=== PATIENT | male | born 1960 | race Caucasian/White ===

== ENCOUNTER 2016-11-12 20:28 | Observation (INO) ==
[2016-11-12] MEDS ORDERED: Naloxone 0.4 MG/ML INJ IVP PRN (22:18)
[2016-11-12] MEDS ORDERED: Ondansetron 4 MG/2 ML VIAL IVP PRN (22:18)
--- NOTE | 2016-11-12 22:18 | Internal Med History&Physical ---
Date of Encounter: 11/12/16 Time of Encounter: 22:18 Assessment and Plan (1) Gastroenteritis Current visit: Yes Status: Acute patient with no preexisting GI problems comes in with GI irritation and gastritis symptoms following ingestion of old, ? norco, history in this case points to a reaction to the medications he ingested, we will admit for observation and supportive therapy with IVF, antacids, antiemetics and bowel rest, we will advance diet gradually as tolerated (2) Hypokalemia Current visit: Yes Status: Acute from GI loss, we will replace and follow BMP (3) Anxiety Current visit: Yes Status: Chronic will continue home medications (4) Mood disorder Current visit: Yes Status: Chronic will continue home medications Internal Medicine - H&P: HPI Chief complaint: nausea and vomiting Admitted From: Hospital to Hospital Transfer Plans for Post Hospital Care: Home History of present illness: Mr. Kohler is a 56 year old male with no GI related history was transferred here from [place] for intractable nausea and vomiting. He was in his usual state of health until Tuesday when whilst working in the [email or web address] he had left arm pain for which he ingested some old [place] that he had at home. He continued to take these tablets that he had from about a year and half prior throughout Tuesday. Around Tuesday night he began to have a headache associated with multiple episodes of nausea and vomiting. He could not keep any food down and this continued throughout today. He was also experiencing epigastric pain that was burning in nature that radiated all the way to his upper throat. He vomited everything he ingested, vomitus was sometimes clear and contained whatever he had ingested prior. He later felt lightheadedness, started "seeing stars" with generalized weakness. He went to [place] [facility] where he was evaluated and transferred here for further management. Past Med Surg Social Fam HX - Past Medical History Source: patient, old records reviewed Medical history: other (diverticulosis, hepatic steatosis) Psychiatric history: anxiety, bipolar, depression - Past Surgical History Surgical History: appendectomy, herniorrhaphy, other - Social History Smoking Status: Former smoker Smokeless Tobacco Status: No Alcohol use: none Drug use: marijuana - Family History Mother Living Status: Still Living Hx Family Endocrine Disorder: Yes (DM) Father Living Status: Hx Family Cardiac Disorders: Yes Internal Medicine - H&P: Meds Quetiapine Fumarate [Seroquel] 200 mg PO HS 06/19/15 [History] ALPRAZolam [Xanax 1 MG Tablet] 1 mg PO TID 07/06/16 [History] Naproxen [Naprosyn] 500 mg PO Q12H PRN 07/08/16 [History] Propranolol [Inderal] 10 mg PO TID 11/12/16 [History] lamoTRIgine [Lamotrigine] 200 mg PO DAILY 11/12/16 [History] Allergies No Known Allergies Allergy (Verified 11/12/16 18:15) All Systems PM: A 10-system review of systems was performed and is negative for pertinent findings except as documented above in the HPI. - Constitutional Vitals: Temp Pulse Resp BP Pulse Ox 98.2 F 77 22 127/88 97 11/12/16 22:02 11/12/16 22:02 11/12/16 22:02 11/12/16 22:02 11/12/16 22:02 PHYSICAL EXAMINATION: GENERAL: Adult male, obese looking, lying in bed with no sign of distress, Alert, HEENT: NC/AT, EOMI, PERRLA, anicteric sclera, normal conjunctiva, supple, clear nares, dry mucous membranes, clear oropharynx, RESP: lungs are clear to auscultation bilaterally, good AE bilaterally, No crackles or wheeze CARDIO: Normal hearts sounds; S1 and 2, RRR with no murmurs, no JVD, no ankle edema GI: Soft, full, epigastric tenderness noted with no guarding, no organomegaly felt, normal bowel sounds heard MUSCULOSKELETAL: grossly normal movements bilaterally in all extremities with no deformities noted NEUROLOGIC: CN 2-12 intact grossly. No motor/sensory deficit appreciated, PSYCHIATRY: AAO x 3. Mood is fair, SKIN: no skin rash or ulcers noted Internal Med - H&P Results - Labs CBC & Chem 7: 11/13/16 02:28 11/13/16 02:28 - Diagnostic Studies CT scan - abdomen Status: image reviewed by me
[2016-11-12] MEDS ORDERED: ALPRAZolam 1 MG TABLET PO PRN (22:20)
[2016-11-12] MEDS ORDERED: Mag Hydrox/Al Hydrox/Simeth 30 ML UDC PO PRN (22:23)
[2016-11-13] MEDS: 0.9 % Sodium Chloride 1,000 ML IVC SCH ×2 (00:36→05:06)
[2016-11-13 03:23] LABS: Hemoglobin 15.5 g/dL (12.9-16.9); Mean Corpuscular HGB Conc 34.4 g/dL (31.6-35.5); Mean Corpuscular Hemoglobin 32.2 pg (28.0-33.3); Mean Corpuscular Volume 93.4 fL (83.0-100.0); Mean Platelet Volume 10.4 fL (9.4-12.4); Platelet Count 236 K/mcL (140-400); Red Blood Count 4.82 M/mcL (4.19-5.50); Red Cell Distribution Width 12.7 % (11.5-14.5)
[2016-11-13 03:42] LABS: BUN/Creatinine Ratio 17 (6-26); Blood Urea Nitrogen 18 mg/dL (8-26); Calcium 8.5 mg/dL (8.6-10.8); Carbon Dioxide 26 mEq/L (19-29); Chloride 104 mEq/L (98-109); Creatine Kinase 1083 Units/L (30-200); Glucose 128 mg/dL (70-99); Magnesium 2.2 mg/dL (1.6-2.6); Osmolality,Calculated 294 (280-300); Phosphorous 2.8 mg/dL (2.3-4.7); Potassium 3.2 mEq/L (3.5-4.5); Sodium 140 mEq/L (136-145); eGFR For African Americans > 60 (> 60); eGFR For Non-African Americans > 60 (> 60)
[2016-11-13] MEDS: Famotidine 20 MG/2 ML VIAL IVP SCH ×2 (04:39→17:35)
[2016-11-13] MEDS ORDERED: lamoTRIgine 100 MG TABLET PO SCH (09:00)
[2016-11-13] MEDS: *HR* Heparin 5,000 UNIT/ML VIAL SQ SCH ×2 (14:41→20:09)
--- NOTE | 2016-11-13 15:09 | Internal Med Progress Note ---
Date of Encounter: 11/13/16 Time of Encounter: 09:00 - Assessment and plan (1) Nausea and vomiting Current Visit: Yes Status: Acute Assessment and plan: Patient presents with nausea, vomiting and epigastric pain after taking [place] pills that he had from years ago. CT of the abdomen and pelvis revealed no acute findings in the abdomen or pelvis , hepatic steatosis, sigmoid and colonic diverticulosis. Patient feels better today compared to yesterday. His symptoms are likely secondary to acute gastritis versus gastroenteritis. Start PPI daily. Advance diet to soft given clinical improvement. Continue IV fluids. Close monitoring. Qualifiers: Vomiting type: unspecified Vomiting Intractability: non-intractable Qualified Code(s): R11.2 - Nausea with vomiting, unspecified (2) Dehydration Current Visit: Yes Status: Acute Assessment and plan: Secondary to GI loss. Improved. Continue IV fluid hydration. (3) Hypokalemia Current Visit: Yes Status: Acute Assessment and plan: Replete. (4) Rhabdomyolysis Current Visit: Yes Status: Acute Assessment and plan: Combination of dehydration and possible quetiapine adverse reaction. Hold quetiapine home dose. Slowly improving. Creatinine kinase down to 774 from 1083. Continue IV fluid hydration. Qualifiers: Rhabdomyolysis type: non-traumatic Qualified Code(s): M62.82 - Rhabdomyolysis (5) Anxiety Current Visit: No Status: Chronic Assessment and plan: Resume home dose of alprazolam, Lamictal and propanolol. (6) Mood disorder Current Visit: No Status: Chronic Assessment and plan: Plan as above. - Subjective Interval history: patient reports mild nausea. no vomiting. He feels 50% better compared to admission. - Constitutional Vitals: Temp Pulse Resp BP Pulse Ox 98.2 F 61 18 111/76 94 11/13/16 10:49 11/13/16 10:49 11/13/16 10:49 11/13/16 10:49 11/13/16 10:49 General appearance: Present: cooperative, A&O X 3, pleasant, no acute distress, answers questions appropriately - Eye Eye exam: Present: PERRL, sclera anicteric - Respiratory Respiratory exam: Present: CTAB - Cardiovascular Cardiovascular exam: Present: RRR - GI/Abdominal GI/Abdominal exam: Present: normal bowel sounds, soft. Absent: distended, tenderness - Extremities Exam Extremities exam: Absent: pedal edema - Back Exam Back exam: Absent: CVA tenderness (L), CVA tenderness (R) - Neurological Exam Neurological exam: Present: alert, oriented X3, no focal deficits, strengths equal and symetr throughout. Absent: facial droop, speech deficit - Skin Skin exam: Absent: rash Internal Medicine: Result - Labs CBC & Chem 7: 11/13/16 02:28 11/13/16 13:43 Labs: Short CBC 11/13/16 Range/Units 02:28 WBC 10.4 (4.3-11.1) K/mcL Hgb 15.5 D (12.9-16.9) g/dL Hct 45.0 (37.5-50.1) % Plt Count 236 (140-400) K/mcL [facility] 11/13/16 11/13/16 02:28 13:43 Sodium 140 Potassium 3.2 L 3.5 Chloride 104 Carbon Dioxide 26 BUN 18 Creatinine 1.09 Glucose 128 H Calcium 8.5 L D Consult Discharge Plan - Plan Referrals: NO,PCP [Primary Care Provider] -
[2016-11-13] MEDS ORDERED: Pantoprazole 40 MG VIAL IVP SCH (15:15)
[2016-11-14 04:42] LABS: Basophils # 0.1 K/mcL (0.0-0.2); Basophils % 0.7 %; Eosinophils # 0.1 K/mcL (0.0-0.6); Eosinophils % 0.8 %; Hematocrit 46.6 % (37.5-50.1); Hemoglobin 16.5 g/dL (12.9-16.9); Immature Granulocytes % 0.4 % (0-4); Mean Corpuscular HGB Conc 35.4 g/dL (31.6-35.5); Mean Corpuscular Volume 93.2 fL (83.0-100.0); Monocytes % 8.6 %; Neutrophils # 7.3 K/mcL (1.6-8.9); Platelet Count 250 K/mcL (140-400); Red Cell Distribution Width 12.8 % (11.5-14.5); Segmented Neutrophils % 63.5 %
[2016-11-14] MEDS: Famotidine 20 MG/2 ML VIAL IVP SCH (04:54)
[2016-11-14] MEDS: *HR* Heparin 5,000 UNIT/ML VIAL SQ SCH (04:56)
[2016-11-14 04:59] LABS: BUN/Creatinine Ratio 12 (6-26); Blood Urea Nitrogen 13 mg/dL (8-26); Calcium 8.5 mg/dL (8.6-10.8); Carbon Dioxide 22 mEq/L (19-29); Chloride 106 mEq/L (98-109); Creatine Kinase 459 Units/L (30-200); Glucose 108 mg/dL (70-99); Magnesium 2.3 mg/dL (1.6-2.6); Osmolality,Calculated 287 (280-300); Potassium 3.5 mEq/L (3.5-4.5); Sodium 138 mEq/L (136-145); eGFR For African Americans > 60 (> 60); eGFR For Non-African Americans > 60 (> 60)
[2016-11-14 07:00] VITALS: BP 128/78
--- NOTE | 2016-11-14 08:43 | Discharge Summary ---
Date of Encounter: 11/14/16 Time of Encounter: 08:41 - Discharge Diagnosis (1) Nausea and vomiting Priority: Primary Status: Acute Qualifiers: Vomiting type: unspecified Vomiting Intractability: non-intractable Qualified Code(s): R11.2 - Nausea with vomiting, unspecified (2) Dehydration Priority: Primary Status: Acute (3) Hypokalemia Priority: Primary Status: Acute (4) Rhabdomyolysis Priority: Primary Status: Acute Qualifiers: Rhabdomyolysis type: non-traumatic Qualified Code(s): M62.82 - Rhabdomyolysis (5) Anxiety Priority: Secondary Status: Chronic (6) Mood disorder Priority: Secondary Status: Chronic - Discharge Medications Prescriptions: Omeprazole [PriLOSEC] 20 mg PO DAILY #10 cap Home Medications: Quetiapine Fumarate [Seroquel] 200 mg PO HS 06/19/15 [History] ALPRAZolam [Xanax 1 MG Tablet] 1 mg PO TID 07/06/16 [History] Propranolol [Inderal] 10 mg PO TID 11/12/16 [History] lamoTRIgine [Lamotrigine] 200 mg PO DAILY 11/12/16 [History] Omeprazole [PriLOSEC] 20 mg PO DAILY #10 cap 11/14/16 [Rx] Allergies/Adverse Reactions: Allergies No Known Allergies Allergy (Verified 11/12/16 18:15) Date of admission: 11/12/16 21:33 Primary care physician: PCP NO - Patient Status Disposition: Home, Self-Care Condition: Good Functional capacity at discharge: independent ambulation Overall status at discharge: patient is progressing back to baseline - Discharge Instructions Instructions: Rhabdomyolysis (DC) Follow Up With: NO,PCP [Non-Partnered Physician] - (pt has pcp appt 11/30/16 ) Additional Instructions: please drink plenty of fluids. follow up with your primary care doctor as scheduled on 11/30/16 at [facility], you may need a repeat cpk - Diet and Activity Activity: resume usual activities as tolerated Diet: low fat, low cholesterol Interval History: patient feels better compared to admission, no nausea, no vomiting, he is tolerating his diet well. Hospital course: Mr. Kohler is a 56 year old male with past medical history of anxiety and mood disorder who presented with nausea, vomiting and epigastric pain after taking [place] peeled that he has from years ago at home. CT of the abdomen and pelvis revealed no acute findings in the abdomen or pelvis, hepatic steatosis, sigmoid and colonic diverticulosis. CPK was 1083 His symptoms are likely secondary to acute gastritis versus gastroenteritis. He was started on supportive therapy with IV fluids and PPI with clinical improvement (CPK trended down to 459). At discharge, he was asymptomatic and tolerating his diet well. plan: Patient instructed to drink plenty of fluids and keeping himself hydrated. He will follow-up with his primary care doctor next week for repeat CPK. - Time Spent with Patient Total time spent providing and/or coordinating discharge services: - Constitutional Vitals: Temp Pulse Resp BP Pulse Ox 98.3 F 69 18 128/78 98 11/14/16 06:59 11/14/16 06:59 11/14/16 06:59 11/14/16 06:59 11/14/16 06:59 General appearance: Present: cooperative, A&O X 3, pleasant, no acute distress, answers questions appropriately - Neck Neck exam general surgery: Present: supple, trachea midline. Absent: lymphadenopathy - Respiratory Respiratory exam: Present: CTAB - Cardiovascular Cardiovascular exam: Present: RRR - GI/Abdominal GI/Abdominal exam: Present: normal bowel sounds, soft. Absent: distended, tenderness - Extremities Exam Extremities exam: Absent: pedal edema - Back Exam Back exam: Absent: CVA tenderness (L), CVA tenderness (R) - Neurological Exam Neurological exam: Present: alert, oriented X3, no focal deficits, strengths equal and symetr throughout. Absent: facial droop, speech deficit - Skin Skin exam: Absent: rash
== END 2016-11-14 09:00 | disposition home or self-care (01) ==
LOC: 2ANU → SUATTDRO 21:33
PROVIDERS: ADMIT Internal Medicine; ATTEND Internal Medicine